=== PATIENT | male | born 1990 | race Caucasian/White ===

== ENCOUNTER 2019-12-16 14:57 | Emergency (ER) | payer BC, OTHER ==
[~2019-12-16] VITALS: Ht 172.7 cm; Wt 84.3 kg
[2019-12-16 15:00] VITALS: BP 154/102
[2019-12-16] MEDS ORDERED: SODIUM CHLORIDE FLUSH 10ML SYR IVF ONE (15:30)
[2019-12-16] MEDS ORDERED: ONDANSETRON ODT 4 MG ONE (15:30)
[2019-12-16] MEDS ORDERED: OXYcodone/APAP 5/325MG TABLET PO ONE (15:30)
[2019-12-16] MEDS ORDERED: ONDANSETRON ODT 4 MG PO ONE (15:30)
[2019-12-16] MEDS ORDERED: OXYcodone/APAP 5/325MG TABLET ONE (15:31)
[2019-12-16 16:42] LABS: MEAN CORPUSCULAR HEMOGLOBIN 31.2 pg (27.5-34.5); MEAN CORPUSCULAR HGB CONC 34.3 g/dL (33.2-36.2); MEAN PLATELET VOLUME 9.1 fL (7.4-10.4); PLATELET COUNT 257 x10^3/uL (130-400); RED BLOOD COUNT 4.95 x10^6/uL (4.38-5.82)
[2019-12-16 16:52] LABS: ALBUMIN 4.4 g/dL (3.4-5.0); ANION GAP 6 mmol/L (5-15); CALCIUM 9.8 mg/dL (8.5-10.1); CHLORIDE 107 mmol/L (98-107)
[2019-12-16 16:57] LABS: ALANINE AMINOTRANSFERASE 110 U/L (12-78); ALKALINE PHOSPHATASE 84 U/L (45-117); BILIRUBIN,TOTAL 0.5 mg/dL (0.2-1.0); CREATININE 0.95 mg/dL (0.7-1.3); TOTAL PROTEIN 7.7 g/dL (6.4-8.2)
[2019-12-16 17:10] LABS: MICROSCOPIC NOT IND
[2019-12-16 17:34] LABS: BASOPHILS # (AUTO) 0.03 x10^3/uL (0-0.1); BASOPHILS % (AUTO) 0 % (0-1); EOSINOPHILS # (AUTO) 0.02 x10^3/uL (0-0.4); EOSINOPHILS % (AUTO) 0 % (1-7); LYMPHOCYTES # (AUTO) 2.07 x10^3/uL (1-3.4); LYMPHOCYTES % (AUTO) 26 % (22-44); MD NO; MONOCYTES # (AUTO) 0.46 x10^3/uL (0.2-0.8); MONOCYTES % (AUTO) 6 % (2-9); NEUTROPHILS # (AUTO) 5.31 x10^3/uL (1.8-6.8); NEUTROPHILS % (AUTO) 67 % (42-75)
[2019-12-16] MEDS ORDERED: OMNIPAQUE 350 MG/ML, 100ML BOTTLE ONE (17:42)
== END 2019-12-16 18:34 | disposition home or self-care (01) ==
LOC: ED 16:49
DX: S76.111A Strain of right quadriceps muscle, fascia and tendon, initial encounter (principal); R94.5 Abnormal results of liver function studies; R10.33 Periumbilical pain; N50.811 Right testicular pain; Z90.89 Acquired absence of other organs; X58.XXXA Exposure to other specified factors, initial encounter; Y93.89 Activity, other specified; Y92.89 Other specified places as the place of occurrence of the external cause; Y99.8 Other external cause status
CPT/HCPCS: 36415; 74177; 76870; 80053; 81003; 85025; 99285; Q0162; Q9967